=== PATIENT | female | born 1980 | race Caucasian/White ===

== ENCOUNTER 2017-06-30 12:12 | Inpatient (IN) ==
--- NOTE | 2017-06-30 13:53 | Order Completion Report ---
See report scanned to EMR
[2017-06-30 14:29] LABS: Basophils # 0.1 10*3/uL (0.0-0.2); Basophils % 0.6 % (0.0-0.8); Eosinophils % 0.5 % (0.00-10.9); Hematocrit 38.3 VOL% (35.7-47.0); Hemoglobin 12.4 GM/DL (12.0-16.0); Immature Granulocytes % 0.2 %; Immature Granulocytes Absolute 0.02 #; Lymphocytes % 36.3 % (21.3-54.2); Mean Corpuscular HGB Conc 32.4 GM/DL (32-36); Mean Corpuscular Hemoglobin 31 PG (27-34); Mean Corpuscular Volume 94.3 FL (87-102); Mean Platelet Volume 9.6 FL (9.6-12.0); Monocytes # 0.4 10*3/uL (0.11-0.8); Monocytes % 5.1 % (1.7-12.7); Neutrophils # 4.7 10*3/uL (1.4-7.4); Neutrophils % 57.3 % (38.7-73.9); Platelet Count 315 T/CUMM (130-400); Red Blood Count 4.06 MC/CUMM (3.8-5.5); Red Cell Distribution Width 13.5 % (9.3-17.3); White Blood Count 8.3 T/CUMM (4-12)
[2017-06-30] MEDS ORDERED: INFLUENZA VIRUS VACCINE 0.5 ML SYRINGE IM ONE (14:30)
--- NOTE | 2017-06-30 14:34 | XRay Report ---
2 view chest. Indication: Respiratory preoperative. The heart and mediastinal contours are unremarkable. The pulmonary vasculature is normal. There is no consolidation, pneumothorax, or pleural effusion. The osseous structures are unremarkable. Impression: No abnormality is seen. PROCEDURE INTERPRETED AT [facility] DEPARTMENT OF RADIOLOGY Final Report Signed by: Dr. Luisana Roberts
[2017-06-30] MEDS: DEXTROSE 5% LACTATED RINGERS 1,000 ML IV SCH ×2 (14:36→23:33)
[2017-06-30] MEDS: MEPERIDINE 50 MG/1 ML VIAL IV PRN ×3 (14:41→23:28)
[2017-06-30 14:57] LABS: Alanine Aminotransferase 15 U/L (13-56); Albumin 4.3 G/DL (3.4-5.0); Alkaline Phosphatase 59 U/L (45-117); Aspartate Amino Transferase 15 U/L (0-37); Bilirubin,Total < 0.39 MG/DL (0.2-1.0); Blood Urea Nitrogen 7 MG/DL (7-18); Calcium 9.1 MG/DL (8.5-10.1); Glucose 88 MG/DL (74-106); Osmolality,Calculated 277.3 MOS/KG (273-304); Potassium 3.5 MMOL/L (3.5-5.1); Sodium 141 MMOL/L (136-145); Total Protein 7.9 G/DL (6.4-8.3)
--- NOTE | 2017-06-30 17:08 | OB/GYN History & Physical ---
History of Present Illness Chief complaint: Severe pelvic pain History of present illness: Ms. Gerber is a 36 year old female 36-year-old female 1 para 1 who presents with a large pelvic mass. This patient was evaluated at [facility] and found to have on CT scan approximately a 14 cm clear cystic mass. Patient has been on Microgestin over the last year to try to suppress an ovarian cyst. This area has been observed over the last several years without good results. On today's examination she was transferred from [facility] made an appointment in my office for the severe pain because of the need to resolve this matter and she could not continue with this, discomfort. Very jj and thorough discussion was made with this patient that the possibility that this most likely is a benign structure. However if the ovaries removed there is a small percentage of these individuals that it could recur on the other side. The patient at this point time said that she has no further desire for children and would prefer to proceed with a hysterectomy. We discussed that we proceeded with the possibility of leading to an exploratory laparotomy with the possibility of a bilateral salpingo-oophorectomy with a DANE. All the risks and benefits were thoroughly discussed with this patient with her mother present. 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 - Constitutional Vitals: Vital Signs Temp Pulse Resp BP Pulse Ox 06/30/17 12:30 97.4 F L 64 20 131/81 100 General appearance: severe distress - Gyencological / Post Surgical Gynocological Exam Lungs: right: normal Chest: Normal S1, Normal S2 Abdomen obstetrics progress note: Present: distention, tenderness - Head Head exam: Present: normal inspection - Eye Eye exam: Present: EOMI Pupils: Present: NEFTALI - ENT ENT exam: Present: normal exam - Neck Neck exam: Present: normal inspection - Respiratory Respiratory exam: Present: clear to auscultation bilaterally - Breast Breasts: as per HPI Menstruation: as per HPI - Cardiovascular Cardiovascular exam: Present: regular rate and rhythm - GI/Abdominal GI/Abdominal exam: Present: distended, tenderness, other (Palpable enlargement) - Extremities Exam Extremities exam: Present: normal inspection - Back Exam Back exam: Present: normal inspection - Neurological Exam Neurological exam: Present: alert, oriented X3, normal gait - Psychiatric Psychiatric exam: Present: normal affect - Skin Skin exam: Present: normal color Assessment and Plan (1) Pelvic mass in female Status: Acute Assessment and plan: Large pelvic mass. This pain has been followed by the emergency room and [facility]. CT scan demonstrated a large structure that is also compressing the bladder and also distending the bowel as well. There was no free fluid noted. I recommended a CA 125 and a CEA. Have also recommended a colon flush on the this evening. Chest x-ray, EKG, type and screen, CBC with differential. In light of this finding of increasing pelvic pain and discomfort this patient scheduled for an exploratory laparotomy with the possibility of a DANE/BSO risks benefits were thoroughly discussed and she is in full agreement. Current Visit: Yes Results - Labs CBC & BMP: 06/30/17 14:15 06/30/17 14:14
[2017-06-30] MEDS: ONDANSETRON 4 MG/2 ML VIAL IV PRN (19:30)
[2017-06-30] MEDS ORDERED: SODIUM PHOSPHATE ENEMA 133 ML BOTTLE RECTAL ONE (20:57)
[2017-07-01] MEDS: MEPERIDINE 50 MG/1 ML VIAL IV PRN (04:37)
[2017-07-01] MEDS: ONDANSETRON 4 MG/2 ML VIAL IV PRN ×2 (04:38→23:14)
[2017-07-01] MEDS ORDERED: ACETAMINOPHEN 325 MG TABLET PO PRN ×2 (05:47→10:50)
[2017-07-01] MEDS ORDERED: LACTATED RINGERS 1,000 ML IV SCH (07:00)
[2017-07-01] MEDS ORDERED: ceFAZolin 2,000 MG in PREMIX 1 EACH IV ONE (07:10)
[2017-07-01] MEDS ORDERED: MICROFIBRILLAR COLLAGEN POWDER 1 GM CAN TOP ONE (08:21)
[2017-07-01] MEDS ORDERED: ceFAZolin 1,000 MG VIAL ONE (08:23)
[2017-07-01] MEDS ORDERED: GLYCOPYRROLATE 0.4 MG/2 ML VIAL ONE (09:00)
[2017-07-01] MEDS ORDERED: NEOSTIGMINE 10 MG/10 ML VIAL ONE (09:00)
[2017-07-01] MEDS ORDERED: SUCCINYLCHOLINE 200 MG/10 ML VIAL ONE (09:00)
[2017-07-01] MEDS ORDERED: KETOROLAC 30 MG/1 ML VIAL ONE (09:00)
[2017-07-01] MEDS ORDERED: ROCURONIUM 100 MG/10 ML VIAL IV ONE ×2 (09:00→11:04)
[2017-07-01] MEDS ORDERED: ONDANSETRON 4 MG/2 ML VIAL ONE (09:00)
[2017-07-01] MEDS ORDERED: DESFLURANE 1 UNIT/15 MINUTE INH ONE ×2 (09:00→11:02)
[2017-07-01] MEDS ORDERED: PROPOFOL 200 MG/20 ML VIAL IV ONE ×2 (09:00→11:03)
--- NOTE | 2017-07-01 10:48 | Operative Note ---
Date of procedure: 07/01/17 Procedure: Preoperative diagnosis: [] Large left ovarian mass Postoperative diagnosis: Same, torsed 15 cm endometrioma, endometriosis Anesthesia: General. endotracheal anesthesia Estimated blood loss: [] 250 Surgeon: Dr. Irizarry Findings: [] The left ovary was torsed multiple areas of endometriosis on the bladder cul-de-sac uterosacral ligaments and also in the right ovary. Procedure: DANE/BSO The risks benefits and indications and alternatives the procedure were reviewed with the patient and informed consent was obtained. The patient was taken to the operating room with IV running and a Bull catheter in place. Patient was placed in supine position, given general anesthesia, prepped and draped in the usual sterile fashion. An abdominal incision was made approximately 2 cm above the symphysis pubis and extended sharply to the rectus fascia. The fascia was then excised bilaterally with the curved Lobo scissors. And the muscles of the anterior abdominal wall were in the midline by sharp and blunt dissection. Peritoneum was grasped between 2 pickups, elevated and entered sharply with the scalpel. The pelvis was examined with the findings noted above. A abdominal retractor was placed into the incision and the bowel packed away with moist laparotomy sponges. [] A tenaculum was placed on the cornea and used for retraction. The left ovary was identified and was up in the upper abdomen. Large chocolate cyst material was extruding from the ovary as well as located in the cul-de-sac. The left ovary had been torsed on several in several areas. Any kind was placed across the ovarian infundibulopelvic ligament. The round ligaments on both sides were clamped, transected and suture ligated with 0 Vicryl the anterior leaf of the broad ligament was incised along the bladder was reflection to the midline from both sides. The bladder was then gently dissected off the lower uterine segment and the cervix with a sponge stick. The infundibulopelvic ligaments on both sides were then doubly clamped, transected and suture ligated with 0 Vicryl. Hemostasis was visualized. The uterine arteries were skeletonized bilaterally, clamped with Tayler clamps, transected and suture ligated with 0 Vicryl and, hemostasis was assured. The uterosacral ligament were clamped on both sides, transected, and suture ligated in a similar fashion the cervix and uterus were amputated with cautery. The vaginal cuff angles were closed with figure-of- eight stitches of 0 Vicryl and were transfixed to the ipsilateral cardinal and uterosacral ligaments. The remainder of the vaginal cuff was closed with a series of interrupted 0 Vicryl [id number] sutures hemostasis was assured. The ureters were identified bilaterally were well within normal limits the pelvis was irrigated copiously with warm normal saline. All laparotomy sponges and instruments were removed from the abdomen. The fascia was closed with running 0 Vicryl, and hemostasis was assured the skin was closed with enoch. Sponges, lap, needle and instrument counts were correct -2. The patient was extubated in the operating room was taken to the PAC unit, awake and in stable condition.. Surgeon / Physician: Karen Irizarry Results - Labs CBC & BMP: 06/30/17 14:15 06/30/17 14:14 Discharge Plan - Discharge Medications No Action Norethindrone [Ortho Micronor] 0.35 mg PO DAILY - Follow Up or Referral - Forms/Instructions
[2017-07-01] MEDS ORDERED: BENZOCAINE/MENTHOL LOZENGE 18/BOX PO PRN (10:50)
[2017-07-01] MEDS ORDERED: BISACODYL 10 MG SUPP RECTAL PRN (10:50)
[2017-07-01] MEDS ORDERED: IBUPROFEN 800 MG TABLET PO PRN (10:50)
[2017-07-01] MEDS ORDERED: NALOXONE 0.4 MG/ML VIAL IV PRN (10:51)
[2017-07-01] MEDS ORDERED: HYDROmorphone 2 MG/1 ML VIAL ONE (10:53)
[2017-07-01] MEDS: HYDROmorphone 2 MG/1 ML VIAL IV PRN ×4 (11:00→11:15)
[2017-07-01] MEDS ORDERED: HYDROmorphone PCA 30 MG/30 ML SYRINGE IV SCH (11:00)
[2017-07-01] MEDS ORDERED: ACETAMINOPHEN 1,000 MG/100 ML VIAL IV ONE (11:03)
[2017-07-01] MEDS ORDERED: fentaNYL 100 MCG/2 ML VIAL ONE (11:03)
[2017-07-01] MEDS ORDERED: PROMETHAZINE 25 MG/1 ML VIAL ONE (11:03)
[2017-07-01] MEDS ORDERED: MIDAZOLAM 2 MG/2 ML VIAL ONE (11:03)
[2017-07-01] MEDS ORDERED: MEPERIDINE 25 MG/1 ML VIAL ONE (11:12)
[2017-07-01 11:13] LABS: Apearance,Urine CLEAR (Clear); Bilirubin,Urine Negative (Negative); Blood, Urine Small mg/dL (Negative); Glucose,Urine (UA) Negative (Negative); Ketones,Urine Negative (Negative); Nitrite,Urine Negative (Negative); Protein,Urine Negative; RBC,Urine <1 /HPF (0-4); Urine Color Straw (Yellow); Urine Specific Gravity 1.008 (1.001-1.035); Urine Urobilinogen < 2.0 EU/DL (0.2-1.0); WBC,Urine <1 /HPF (0-6)
[2017-07-01] MEDS ORDERED: MEPERIDINE 25 MG/1 ML VIAL IV PRN (11:14)
[2017-07-01] MEDS: LACTATED RINGERS 1,000 ML IV SCH ×2 (12:33→19:50)
--- NOTE | 2017-07-01 14:16 | Anesthesia Post-Op ---
Anesthesia Post OP - Post Ansesthetic Evaluation Patient seen in post op: Yes Resp: within normal limits CV: within normal limits Mental: within normal limits Temp: within normal limits [id number]-Ac-[id number]: within normal limits Nausea and Vomiting: within normal limits Pain: within normal limits
[2017-07-01 19:42] LABS: Basophils % 0.2 % (0.0-0.8); Hematocrit 24.9 VOL% (35.7-47.0); Hemoglobin 8.2 GM/DL (12.0-16.0); Immature Granulocytes % 0.5 %; Immature Granulocytes Absolute 0.06 #; Lymphocytes # 1.6 10*3/uL (1.4-4.0); Lymphocytes % 13.5 % (21.3-54.2); Mean Corpuscular HGB Conc 32.9 GM/DL (32-36); Mean Corpuscular Hemoglobin 31 PG (27-34); Mean Corpuscular Volume 94.7 FL (87-102); Mean Platelet Volume 9.7 FL (9.6-12.0); Monocytes # 0.6 10*3/uL (0.11-0.8); Monocytes % 5.1 % (1.7-12.7); Neutrophils # 9.7 10*3/uL (1.4-7.4); Neutrophils % 80.7 % (38.7-73.9); Platelet Count 238 T/CUMM (130-400); Red Blood Count 2.63 MC/CUMM (3.8-5.5); Red Cell Distribution Width 13.3 % (9.3-17.3)
[2017-07-01] MEDS: ACETAMINOPHEN 325 MG TABLET PO PRN (20:30)
[2017-07-01] MEDS: SIMETHICONE CHEW 80 MG TABLET PO PRN (20:32)
[2017-07-02 05:40] LABS: Basophils % 0.1 % (0.0-0.8); Hematocrit 23.1 VOL% (35.7-47.0); Hemoglobin 7.4 GM/DL (12.0-16.0); Immature Granulocytes % 0.3 %; Immature Granulocytes Absolute 0.03 #; Lymphocytes # 1.5 10*3/uL (1.4-4.0); Lymphocytes % 15.8 % (21.3-54.2); Mean Corpuscular Hemoglobin 30 PG (27-34); Mean Corpuscular Volume 93.9 FL (87-102); Mean Platelet Volume 9.8 FL (9.6-12.0); Monocytes # 0.5 10*3/uL (0.11-0.8); Neutrophils # 7.7 10*3/uL (1.4-7.4); Neutrophils % 78.8 % (38.7-73.9); Platelet Count 213 T/CUMM (130-400); Red Blood Count 2.46 MC/CUMM (3.8-5.5); Red Cell Distribution Width 13.2 % (9.3-17.3); White Blood Count 9.7 T/CUMM (4-12)
[2017-07-02] MEDS: LACTATED RINGERS 1,000 ML IV SCH (05:45)
--- NOTE | 2017-07-02 07:49 | OB/GYN Progress Note ---
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 - Constitutional Vitals: Vital Signs Temp Pulse Pulse Resp BP BP Pulse Ox 07/02/17 05:00 18 07/02/17 03:45 98.5 F 66 66 18 130/72 130/72 99 07/02/17 03:00 20 07/02/17 02:00 20 07/01/17 23:57 97.8 F 68 18 134/75 07/01/17 23:39 68 18 134/75 84 L 07/01/17 20:25 16 07/01/17 19:50 98.2 F 88 88 18 110/77 110/77 96 07/01/17 18:22 18 07/01/17 18:15 88 18 07/01/17 18:00 20 07/01/17 16:42 18 07/01/17 16:00 98.4 F 88 20 106/68 07/01/17 15:35 98.2 F 92 H 20 116/74 07/01/17 15:00 20 07/01/17 14:45 97.4 F L 100 H 20 114/82 07/01/17 14:00 20 07/01/17 13:45 92 H 80 20 124/81 124/81 98 07/01/17 13:15 90 20 128/80 98 07/01/17 13:00 80 20 128/80 98 07/01/17 12:45 80 86 20 128/88 128/88 99 07/01/17 12:15 87 87 20 127/89 127/89 98 07/01/17 12:00 18 07/01/17 11:45 97.6 F 71 71 18 131/84 97 07/01/17 11:38 97.8 F 82 20 119/81 93 L 07/01/17 11:35 82 20 119/81 94 L 07/01/17 11:25 73 18 143/72 95 07/01/17 11:15 80 16 130/83 100 07/01/17 11:05 75 20 137/89 100 07/01/17 11:00 69 24 127/81 100 07/01/17 10:55 65 20 133/70 100 07/01/17 10:50 77 16 151/82 100 07/01/17 10:45 97.6 F 92 H 20 121/98 98 07/01/17 10:00 20 07/01/17 08:28 20 07/01/17 08:00 97.3 F L 73 20 117/74 Pulse Ox 07/02/17 05:00 07/02/17 03:45 99 07/02/17 03:00 07/02/17 02:00 07/01/17 23:57 84 L 07/01/17 23:39 07/01/17 20:25 07/01/17 19:50 96 07/01/17 18:22 07/01/17 18:15 07/01/17 18:00 07/01/17 16:42 07/01/17 16:00 98 07/01/17 15:35 99 07/01/17 15:00 07/01/17 14:45 99 07/01/17 14:00 07/01/17 13:45 98 07/01/17 13:15 07/01/17 13:00 07/01/17 12:45 98 07/01/17 12:15 98 07/01/17 12:00 07/01/17 11:45 98 07/01/17 11:38 07/01/17 11:35 07/01/17 11:25 07/01/17 11:15 07/01/17 11:05 07/01/17 11:00 07/01/17 10:55 07/01/17 10:50 07/01/17 10:45 07/01/17 10:00 07/01/17 08:28 07/01/17 08:00 99 General appearance: no acute distress - Head Head exam: Present: normocephalic - Eye Eye exam: Present: EOMI Pupils: Present: NEFTALI - GI/Abdominal GI/Abdominal exam: Present: other (Incision looks great) - Psychiatric Psychiatric exam: Present: other (disposition different) Results - Labs CBC & BMP: 07/02/17 05:28 06/30/17 14:14
[2017-07-02] MEDS: ONDANSETRON 4 MG/2 ML VIAL IV PRN (07:53)
[2017-07-02] MEDS: SIMETHICONE CHEW 80 MG TABLET PO PRN ×2 (08:47→15:52)
[2017-07-02] MEDS: MAGNESIUM HYDROXIDE SUSP 30 ML UDCUP PO PRN ×2 (08:47→21:14)
[2017-07-02] MEDS: DOCUSATE SODIUM 100 MG CAPSULE PO PRN ×2 (08:47→21:14)
[2017-07-02] MEDS: FERROUS SULFATE 325 MG TABLET PO SCH ×3 (08:47→21:14)
[2017-07-02] MEDS: IBUPROFEN 800 MG TABLET PO SCH ×3 (09:33→23:45)
[2017-07-02] MEDS: ACETAMINOPHEN 325 MG TABLET PO PRN (21:25)
[2017-07-03 08:31] VITALS: BP 119/54
[2017-07-03] MEDS: DOCUSATE SODIUM 100 MG CAPSULE PO PRN (09:12)
[2017-07-03] MEDS: MAGNESIUM HYDROXIDE SUSP 30 ML UDCUP PO PRN (09:12)
[2017-07-03] MEDS: FERROUS SULFATE 325 MG TABLET PO SCH (09:12)
[2017-07-03] MEDS: IBUPROFEN 800 MG TABLET PO SCH (09:13)
--- NOTE | 2017-07-03 10:01 | Discharge Summary ---
Hospital Course - Hospital Course Hospital Course: Routine post op course. Doing well this morning. BM x 2 this morning. READY to go home. FABIAN, likely secondary to lack of caffine (daily drinker, none since ) and no nicotine (none since ). Diagnosis - Discharge Diagnosis (1) Endometriosis Status: Acute (2) S/P DANE (total abdominal hysterectomy) Status: Acute Specialty Discharge - Follow Up or Referrals Discharge Plan - Discharge Data Disposition: Disch To Home/Self Care Condition at Discharge: Stable Activity: other (routine post op) Hygiene: may shower Weight Bearing at Discharge: full weight bearing Driving: not for (2 weeks) Contact your physician if you experience:: fever over 101, Difficulty voiding - Discharge Medications New HYDROcodone/ACETAMIN 5-325 [[place] 5-325] 2 tablet PO Q4H PRN #20 tablet PRN Reason: Pain Moderate (4-7) Docusate Sodium Cap [Colace Cap] 100 mg PO BID PRN #30 capsule PRN Reason: Constipation Ibuprofen Tab [Motrin Tab] 800 mg PO Q8H #30 tablet No Action Norethindrone [Ortho Micronor] 0.35 mg PO DAILY - Follow Up or Referral - Forms/Instructions Instructions: Abdominal Hysterectomy (DC), Surgical Site Infections (GEN), Wound Healing and Your Diet (DC) Exam - Constitutional Vitals: Period Temp Pulse Resp BP Sys/Pineda Pulse Ox Last 24 Hr 97.1 F-98.0 F 72-89 18-20 101-140/53-75 94-99 General appearance: no acute distress - Head Head exam: Present: normocephalic - Eye Eye exam: Present: EOMI Pupils: Present: NEFTALI - GI/Abdominal GI/Abdominal exam: Present: soft, other (Incision intact, looks good) Discharge Results Labs on day of discharge: Labs from last 24 hours 06/30/17 14:15 CA 125 Antigen 38 DS: Provider Date of admission: 07/01/17 08:34 Primary care physician: . No PCP Attending physician on admission: Karen Irizarry MD Discharging clinician: Randee Lane MD
[2017-07-03] MEDS ORDERED: BUTALBITAL/ACETAMIN/CAFFEINE 50-325-40 MG TABLET PO PRN (10:02)
--- NOTE | 2017-07-04 12:19 | Pathology Report from [facility] ---
[facility] [place] ACCESSION # : [id number] PATIENT NAME : Sanna Todd ORDERING DR : NATHALY GAMING MD CLINICAL HX: Large pelvic mass POST-OP DX: Endometrim torsion - left ovarian cyst SPECIMEN INFO: Pelvic mass, uterus with cervix, bilateral tubes and ovaries GROSS DESCRIPTION: The specimen is received in formalin labeled with the patients name SANNA TODD and consists of an 82 gram uterus and cervix which measures 9.5 x 4.8 x 3.2 cm. The serosa is red-pacheco and adhesions noted. The cervix measures 2.8 cm. The cervical os measures 0.6 cm. The endocervical canal is pacheco and patent. The endometrial cavity has an average mucosal thickness of 0.2 cm. Sectioning reveals no gross abnormalities. Received separately in the container is a pink-pacheco ovary measuring 2.8 x 2.3 cm. Sectioning reveals multiple clear fluid filled cysts measuring up to 0.8 cm. The adjacent fallopian tube is fimbriated and measures 3.0 x 0.7 cm with a 1.0 cm paratubal cyst noted. Also received separately is a collapsed cyst measuring 11.0 x 9.5 cm which is partially filled with chocolate colored fluid. The lining of the cyst is smooth with no excrescencies or other lesions appreciated. The adjacent fallopian tube is fimbriated and measures 5.5 x 0.7 cm. Sections submitted: A cervix, B and C endomyometrium, D posterior uterine serosa and serosal adhesions, E first ovary and fallopian tube, F ovarian cyst, G fallopian tube and adjacent cyst. DIAGNOSIS FOR SANNA TODD: PELVIC MASS, UTERUS, CERVIX, BILATERAL TUBES & OVARIES: Chronic cystic cervicitis. Proliferative endometrium. Adenomyosis. Serosal fibrous adhesions. 1st ovary with follicular cysts; fallopian tube with a paratubal cyst. 2nd ovary with an endometrial-type cyst; fallopian tube. COLLECTED DATE: 07/01/2017 [facility] REPORT DATE: 07/04/2017 ELECTRONICALLY SIGNED BY: Grzegorz Unger M.D. 07/04/2017 - 9:53:25 [facility]ITALSu[facility]
== END 2017-07-03 10:45 | disposition home or self-care (01) | DRG 513 ==
LOC: N.OB 12:12 → EDSTATUS 07-01 11:41 → N.LDOUT 07-01 11:41
PROVIDERS: ADMIT Obstetrics & Gynecology; ATTEND Obstetrics & Gynecology

== ENCOUNTER 2017-07-07 10:29 | Inpatient (IN) ==
[2017-07-07] MEDS ORDERED: oxyCODONE/ACETAMINOPHEN 5-325 MG TABLET PO PRN (11:01)
[2017-07-07] MEDS ORDERED: ESTRADIOL VALERATE IM 100 MG/5 ML VIAL IM ONE (11:02)
[2017-07-07 11:21] LABS: Basophils % 0.1 % (0.0-0.8); Eosinophils % 0.2 % (0.00-10.9); Hemoglobin 7.3 GM/DL (12.0-16.0); Immature Granulocytes % 0.8 %; Immature Granulocytes Absolute 0.11 #; Lymphocytes # 1.5 10*3/uL (1.4-4.0); Mean Corpuscular HGB Conc 33.2 GM/DL (32-36); Mean Corpuscular Hemoglobin 30 PG (27-34); Mean Corpuscular Volume 90.9 FL (87-102); Mean Platelet Volume 9.5 FL (9.6-12.0); Monocytes # 0.8 10*3/uL (0.11-0.8); Monocytes % 6.1 % (1.7-12.7); Neutrophils # 11.2 10*3/uL (1.4-7.4); Neutrophils % 81.8 % (38.7-73.9); Platelet Count 384 T/CUMM (130-400); Red Blood Count 2.42 MC/CUMM (3.8-5.5); Red Cell Distribution Width 13.8 % (9.3-17.3); White Blood Count 13.7 T/CUMM (4-12)
[2017-07-07] MEDS ORDERED: LACTATED RINGERS 1,000 ML IV SCH (12:00)
[2017-07-07] MEDS ORDERED: ceFAZolin 2,000 MG in PREMIX 1 EACH IV SCH (12:00)
[2017-07-07 12:04] LABS: Albumin 2.5 G/DL (3.4-5.0); Bilirubin,Total 0.6 MG/DL (0.2-1.0); Calcium 8.4 MG/DL (8.5-10.1); Osmolality,Calculated 273.7 MOS/KG (273-304); Total Protein 6.2 G/DL (6.4-8.3)
[2017-07-07 12:06] LABS: Potassium 2.5 MMOL/L (3.5-5.1)
[2017-07-07] MEDS: MEPERIDINE 50 MG/1 ML VIAL IV PRN ×2 (12:08→20:06)
[2017-07-07 12:11] LABS: Hypochromasia 2+; Microcytosis Slight
[2017-07-07] MEDS: ONDANSETRON 4 MG/2 ML VIAL IV PRN ×2 (12:11→20:06)
[2017-07-07] MEDS ORDERED: SODIUM CHLORIDE 0.9% 250 ML IV PRN (12:24)
[2017-07-07] MEDS: oxyCODONE/ACETAMINOPHEN 5-325 MG TABLET PO PRN (16:41)
[2017-07-07] MEDS: ceFAZolin 2,000 MG in PREMIX 1 EACH IV SCH ×2 (18:12→20:18)
[2017-07-07 18:17] LABS: Apearance,Urine CLOUDY (Clear); Bilirubin,Urine Negative (Negative); Blood, Urine Large mg/dL (Negative); Glucose,Urine (UA) Negative (Negative); Ketones,Urine Negative (Negative); Nitrite,Urine Negative (Negative); Protein,Urine 100 MG/DL; RBC,Urine 39 /HPF (0-4); Squamous Epithelial Cell,Urine Occasional /HPF (0-10); Urine Color Yellow (Yellow); Urine Specific Gravity 1.009 (1.001-1.035); Urine Urobilinogen < 2.0 EU/DL (0.2-1.0); WBC,Urine 1390 /HPF (0-6)
[2017-07-07] MEDS: POTASSIUM CHLORIDE INJ 20 MEQ in LACTATED RINGERS 1,000 ML IV SCH (20:00)
[2017-07-07] MEDS: POTASSIUM CHLORIDE 20 MEQ TABLET PO SCH (20:05)
[2017-07-07 22:50] LABS: Hematocrit 24.7 VOL% (35.7-47.0); Hemoglobin 8.4 GM/DL (12.0-16.0)
[2017-07-08] MEDS: oxyCODONE/ACETAMINOPHEN 5-325 MG TABLET PO PRN ×3 (00:01→16:58)
[2017-07-08] MEDS: ceFAZolin 2,000 MG in PREMIX 1 EACH IV SCH ×3 (03:50→20:35)
[2017-07-08] MEDS: IBUPROFEN 800 MG TABLET PO PRN ×3 (03:59→20:33)
[2017-07-08] MEDS: POTASSIUM CHLORIDE INJ 20 MEQ in LACTATED RINGERS 1,000 ML IV SCH (04:10)
[2017-07-08] MEDS ORDERED: SODIUM CHLORIDE 0.9% 250 ML IV PRN (07:19)
[2017-07-08] MEDS: POTASSIUM CHLORIDE 20 MEQ TABLET PO SCH ×2 (09:20→20:33)
[2017-07-08] MEDS: FERROUS SULFATE 325 MG TABLET PO SCH ×2 (09:21→20:33)
[2017-07-08 14:06] LABS: Hematocrit 26.8 VOL% (35.7-47.0)
[2017-07-08] MEDS ORDERED: ZALEPLON 5 MG CAPSULE PO PRN (20:36)
[2017-07-08 22:48] LABS: Hemoglobin 10.5 GM/DL (12.0-16.0)
[2017-07-09] MEDS: oxyCODONE/ACETAMINOPHEN 5-325 MG TABLET PO PRN ×3 (00:22→22:17)
[2017-07-09] MEDS: ceFAZolin 2,000 MG in PREMIX 1 EACH IV SCH ×3 (04:02→19:52)
[2017-07-09] MEDS: FERROUS SULFATE 325 MG TABLET PO SCH ×2 (09:00→20:01)
[2017-07-09] MEDS: POTASSIUM CHLORIDE 20 MEQ TABLET PO SCH ×2 (09:00→09:02)
[2017-07-09 11:36] LABS: Apearance,Urine CLEAR (Clear); Bilirubin,Urine Negative (Negative); Blood, Urine Small mg/dL (Negative); Glucose,Urine (UA) Negative (Negative); Ketones,Urine Negative (Negative); Nitrite,Urine Negative (Negative); Protein,Urine Negative; RBC,Urine 1 /HPF (0-4); Squamous Epithelial Cell,Urine Occasional /HPF (0-10); Urine Color Yellow (Yellow); Urine Specific Gravity 1.005 (1.001-1.035); Urine Urobilinogen < 2.0 EU/DL (0.2-1.0); WBC,Urine 24 /HPF (0-6)
[2017-07-10] MEDS: ceFAZolin 2,000 MG in PREMIX 1 EACH IV SCH ×2 (04:45→12:13)
[2017-07-10] MEDS: FERROUS SULFATE 325 MG TABLET PO SCH (09:13)
[2017-07-10 12:23] VITALS: BP 135/89
[2017-07-10] MEDS: oxyCODONE/ACETAMINOPHEN 5-325 MG TABLET PO PRN (12:39)
== END 2017-07-10 14:40 | disposition home or self-care (01) | DRG 813 ==
LOC: N.OB 10:38
PROVIDERS: ADMIT Obstetrics & Gynecology; ATTEND Obstetrics & Gynecology